=== PATIENT | male | born 1975 | race Caucasian/White ===

== ENCOUNTER 2018-05-08 11:58 | Day surgery (SDC) | payer OTHER ==
[~2018-05-08 11:58] MED LIST: Buffered Lidocaine 0.9% SYRIN* 5 ML/SYR SYRINGE INTRADERM ONE; Famotidine IV* 10 MG/ML 2 ML (20 mg) IV ONE
[2018-05-08] MEDS ORDERED: Midazolam* 1 MG/ML 5 ML VIAL (5 MG) ONE ×2 (12:26→14:19)
[2018-05-08] MEDS ORDERED: fentaNYL* 50 MCG/ML 2 ML VIAL (100 MCG VIAL) ONE (12:26)
[2018-05-08] MEDS ORDERED: Lidocaine 2% PF * 5 ML VIAL ONE (12:32)
[2018-05-08] MEDS ORDERED: DiMENhydriNATE IV* 50 MG/ML VIAL ONE (12:32)
[2018-05-08] MEDS ORDERED: Ketorolac INJ* 30 MG/ML 1 ML VIAL ONE (12:32)
[2018-05-08] MEDS ORDERED: Propofol* 10 MG/ML 20 ML BTL IV PUSH ONE (12:32)
[2018-05-08] MEDS ORDERED: Famotidine IV* 10 MG/ML 2 ML (20 mg) ONE (12:33)
[2018-05-08] MEDS ORDERED: ceFAZolin 2 GM PREMIX (*) 2 GM/50 ML BAG IVPB ONE (12:33)
[2018-05-08] MEDS ORDERED: Bupivacaine 0.25% SDV* 30 ML ONE (13:52)
[2018-05-08] MEDS ORDERED: Acetaminophen TAB* 325 MG PO PRN (13:56)
[2018-05-08] MEDS ORDERED: oxyCODONE TAB* 5 MG TAB PO PRN (13:56)
[2018-05-08] MEDS ORDERED: Naloxone* 0.4 MG/ML 1 ML VIAL IV PRN (13:56)
[2018-05-08] MEDS ORDERED: Ondansetron INJ* 2 MG/ML VIAL IV PRN (13:56)
[2018-05-08 15:34] VITALS: BP 120/68
--- NOTE | 2018-05-10 08:08 | OP ---
DATE OF OPERATION: 05/08/18 - [facility] DATE OF : 77 SURGEON: Alfredo Richter MD CHEF INSTRUCTOR: None. ANESTHESIOLOGIST: Elly Liriano MD ANESTHESIA: Local MAC. 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 OPERATIVE PROCEDURE: 1. Right third dorsal compartment tenosynovectomy with release and transposition of the EPL tendon and excision of Stephanie's tubercle with release of the tendon in transposition. 2. Excision of Stephanie's tubercle, right wrist. INDICATIONS: Jesus has pretty severe tenosynovitis in the third dorsal compartment seen on MRI and clinically, he has a lot of pain right in the distal intersection between the second and third dorsal compartments. Tendon looked like it was starting to degenerate on the MRI. We, therefore, talked about his options including steroid injections or releasing the tendon. He wanted to release the tendon; I thought it was very reasonable. I told him I would excise Stephanie's tubercle as well as to prevent any chance of tendon rupture. He agreed and wants to proceed. ESTIMATED BLOOD LOSS: 2 mL. COMPLICATIONS: None. FINDINGS: As expected. DESCRIPTION OF PROCEDURE: Jesus was seen in the preoperative holding area. The correct site, side, and procedure were identified. We came back to the operating room where he got some anesthesia and I infiltrated the operative area with 0.25% plain Marcaine. The arm was prepped and draped and a formal time-out was performed. I began by making a 3-cm longitudinal incision right over the third dorsal compartment. Dissection was carried down, full-thickness flaps were raised off the retinaculum. The retinaculum was released over the third dorsal compartment. There was quite a bit of tenosynovitis, this was all excised until the tendon was nice and clean. I then transposed the tendon. I went ahead and raised subperiosteal flaps off Stephanie's tubercle and used a rongeur to excise that in its entirety. Once it was nice and smooth, dorsal distal radius, I placed a bone wax into the cancellous bed for hemostasis. I then irrigated out the wound. The retinaculum was closed with 4-0 Ethibond suture. The EPL tendon was left transposed. The skin was closed with 3-0 Monocryl and Steri- Strips. Wound was dressed with soft dressings. He was woken up and taken to the recovery room in stable condition. [id number] #: [id number] MTDD
== END 2018-05-08 15:30 | disposition home or self-care (01) ==
LOC: OREAST 11:58
PROVIDERS: ATTEND Orthopaedic Surgery Hand Surgery
DX: M65.831 Other synovitis and tenosynovitis, right forearm (principal); G47.33 Obstructive sleep apnea (adult) (pediatric); J30.89 Other allergic rhinitis
CPT/HCPCS: J0690; J1240; J1885; J2250; J2704; J3010